=== PATIENT | female | born 2000 | race African-American/Black ===

== ENCOUNTER 2024-05-08 11:28 | Emergency (ER) | payer MEDICAID ==
[~2024-05-08] VITALS: Ht 177.8 cm; Wt 105.0 kg
[2024-05-08 11:36] VITALS: BP 153/103; RESP 18; TEMP 97.7; O2SAT 100
[2024-05-08 11:37] VITALS: PULSE 118
[2024-05-08 12:03] LABS: BASOPHILS % 0.7 % (0.0-2.0); EOSINOPHILS % 4.4 % (0.0-5.0); HEMATOCRIT. 32.7 % (36.0-48.0); HEMOGLOBIN. 10.1 g/dL (12.0-16.0); LYMPHOCYTES % 32.2 % (20.0-50.0); MEAN CORPUSCULAR HEMOGLOBIN 21.2 pg (28.0-32.0); MEAN CORPUSCULAR HGB CONC 30.8 g/dL (31.0-37.0); MEAN CORPUSCULAR VOLUME 68.9 fL (81.0-99.0); MEAN PLATELET VOLUME 7.9 fl (7.4-10.4); MONOCYTES % 7.8 % (2.0-8.0); NEUTROPHILS % 54.9 % (40.0-76.0); PLATELET 592 x1000/uL (130-400); RED BLOOD CELL COUNT 4.74 mill/uL (4.2-5.4); RED CELL DISTRIBUTION WIDTH 20.3 % (11.6-14.6); WHITE BLOOD COUNT 5.5 x1000/uL (4.5-11.0)
[2024-05-08 12:04] LABS: ADD RBC MORPHOLOGY YES; DIFFERENTIAL COMMENT 1
[2024-05-08 12:59] LABS: ANISOCYTOSIS 2+; HYPOCHROMASIA 1+; MICROCYTOSIS 3+; PLATELET ESTIMATE INCREASED
== END 2024-05-08 14:39 | disposition home or self-care (01) ==
LOC: ER 11:28
DX: O03.9 Complete or unspecified spontaneous abortion without complication (principal)
CPT/HCPCS: 36415; 76830; 76856; 81025; 84702; 85025; 86850; 86900; 99284